=== PATIENT | male | born 1970 | race African-American/Black ===

== ENCOUNTER 2019-09-07 06:07 | Inpatient (IN) ==
[2019-09-07] MEDS ORDERED: ONDANSETRON 4 MG/2 ML VIAL IV STA (06:43)
[2019-09-07] MEDS ORDERED: SODIUM CHLORIDE 0.9% 1,000 ML IV STA ×2 (06:43→06:50)
[2019-09-07 06:52] LABS: Basophils # 0.1 10*3/uL (0.0-0.2); Basophils % 0.4 % (0.0-0.8); Eosinophils % 0.3 % (0.00-10.9); Hematocrit 34.2 VOL% (42.0-52.0); Hemoglobin 12.2 GM/DL (14.0-18.0); Immature Granulocytes % 0.7 %; Lymphocytes # 2.5 10*3/uL (1.4-4.0); Lymphocytes % 18.9 % (21.2-54.2); Mean Corpuscular HGB Conc 35.7 GM/DL (32-36); Mean Corpuscular Volume 89.5 FL (87-102); Mean Platelet Volume 9.9 FL (9.6-12.0); Monocytes % 8.9 % (1.7-12.7); Neutrophils % 70.8 % (38.7-73.9); Platelet Count 297 T/CUMM (130-400); Red Blood Count 3.82 MC/CUMM (3.8-5.5); White Blood Count 13.4 T/CUMM (4-12)
[2019-09-07 07:13] LABS: Bilirubin,Total 1.5 MG/DL (0.2-1.0); Calcium 8.7 MG/DL (8.5-10.1); Osmolality,Calculated 270.4 MOS/KG (273-304); Total Protein 6.5 G/DL (6.4-8.3)
[2019-09-07] MEDS ORDERED: POTASSIUM CHLORIDE 20 MEQ TABLET PO STA (07:57)
[2019-09-07 09:01] LABS: Apearance,Urine CLEAR (Clear); Bacteria,Urine Occasional /HPF (Few); Bilirubin,Urine Negative (Negative); Blood, Urine Small mg/dL (Negative); Glucose,Urine (UA) Negative (Negative); Hyaline Casts,Urine 5 /LPF (0-3); Ketones,Urine Negative (Negative); Mucus,Urine Occasional /LPF (Occasional); Nitrite,Urine Negative (Negative); Protein,Urine Negative; RBC,Urine <1 /HPF (0-4); Squamous Epithelial Cell,Urine Occasional /HPF (0-10); Urine Color Yellow (Yellow); Urine Specific Gravity 1.019 (1.001-1.035); Urine Urobilinogen < 2.0 EU/DL (0.2-1.0); WBC,Urine 3 /HPF (0-6)
[2019-09-07] MEDS ORDERED: ACETAMINOPHEN 325 MG TABLET PO PRN (09:09)
[2019-09-07] MEDS ORDERED: ONDANSETRON 4 MG/2 ML VIAL IV PRN (09:09)
[2019-09-07] MEDS ORDERED: NICOTINE 21 MG/24 HR PATCH TRANSDERM PRN (09:09)
[2019-09-07] MEDS ORDERED: LORazepam 2 MG/1 ML VIAL IV PRN (09:45)
[2019-09-07] MEDS: SODIUM CHLORIDE 0.9% 1,000 ML IV SCH ×3 (11:02→18:43)
[2019-09-07] MEDS: FOLIC ACID 1 MG TABLET PO SCH (20:57)
[2019-09-07] MEDS: PANTOPRAZOLE 40 MG VIAL IV SCH (20:57)
[2019-09-08] MEDS: SODIUM CHLORIDE 0.9% 1,000 ML IV SCH ×4 (04:10→18:23)
[2019-09-08 06:22] LABS: Calcium 7.9 MG/DL (8.5-10.1); Osmolality,Calculated 277.5 MOS/KG (273-304)
[2019-09-08 06:47] LABS: Basophils # 0.1 10*3/uL (0.0-0.2); Basophils % 1.1 % (0.0-0.8); Eosinophils # 0.1 10*3/uL (0.0-0.87); Eosinophils % 1.4 % (0.00-10.9); Hematocrit 26.1 VOL% (42.0-52.0); Immature Granulocytes % 0.7 %; Immature Granulocytes Absolute 0.06 #; Lymphocytes # 3.4 10*3/uL (1.4-4.0); Mean Corpuscular HGB Conc 34.5 GM/DL (32-36); Mean Corpuscular Volume 91.9 FL (87-102); Monocytes % 11.1 % (1.7-12.7); Neutrophils % 45.7 % (38.7-73.9); Platelet Count 224 T/CUMM (130-400); Red Blood Count 2.84 MC/CUMM (3.8-5.5); Red Cell Distribution Width 12.6 % (9.3-17.3); White Blood Count 8.5 T/CUMM (4-12)
[2019-09-08] MEDS: POTASSIUM CHLORIDE 20 MEQ TABLET PO PRN ×3 (08:23→18:24)
[2019-09-08] MEDS ORDERED: ONDANSETRON 4 MG/2 ML VIAL ONE (09:00)
[2019-09-08] MEDS ORDERED: LIDOCAINE 2% 5 ML VIAL ONE (09:00)
[2019-09-08] MEDS ORDERED: PHENYLEPHRINE 1 MG/10 ML SYRINGE IV ONE (09:00)
[2019-09-08] MEDS ORDERED: CYANOCOBALAMIN 100 MCG TABLET PO SCH (09:00)
[2019-09-08] MEDS ORDERED: PROPOFOL 200 MG/20 ML VIAL IV ONE (09:00)
[2019-09-08] MEDS: LACTATED RINGERS 1,000 ML IV SCH (09:18)
[2019-09-08] MEDS: FOLIC ACID 1 MG TABLET PO SCH ×2 (13:27→21:28)
[2019-09-08] MEDS: PANTOPRAZOLE 40 MG VIAL IV SCH ×2 (13:27→21:27)
[2019-09-08] MEDS: MULTIVITAMIN (BEROCCA) TABLET PO SCH (13:27)
[2019-09-09] MEDS: SODIUM CHLORIDE 0.9% 1,000 ML IV SCH ×4 (00:32→21:29)
[2019-09-09 06:22] LABS: Basophils # 0.1 10*3/uL (0.0-0.2); Eosinophils # 0.1 10*3/uL (0.0-0.87); Eosinophils % 2.1 % (0.00-10.9); Hematocrit 21.9 VOL% (42.0-52.0); Immature Granulocytes % 0.9 %; Immature Granulocytes Absolute 0.06 #; Lymphocytes # 2.8 10*3/uL (1.4-4.0); Lymphocytes % 41.8 % (21.2-54.2); Mean Corpuscular HGB Conc 33.3 GM/DL (32-36); Mean Corpuscular Volume 94.8 FL (87-102); Mean Platelet Volume 9.5 FL (9.6-12.0); Monocytes % 11.2 % (1.7-12.7); Platelet Count 212 T/CUMM (130-400); Red Blood Count 2.31 MC/CUMM (3.8-5.5); Red Cell Distribution Width 12.9 % (9.3-17.3); White Blood Count 6.7 T/CUMM (4-12)
[2019-09-09 06:24] LABS: Hemoglobin 7.3 GM/DL (14.0-18.0)
[2019-09-09 06:31] LABS: Calcium 7.9 MG/DL (8.5-10.1)
[2019-09-09] MEDS: PANTOPRAZOLE 40 MG VIAL IV SCH ×2 (08:41→21:30)
[2019-09-09] MEDS: MULTIVITAMIN (BEROCCA) TABLET PO SCH (08:42)
[2019-09-09] MEDS: FOLIC ACID 1 MG TABLET PO SCH ×2 (08:42→21:30)
[2019-09-09] MEDS: LACTATED RINGERS 1,000 ML IV SCH (14:04)
[2019-09-09 14:38] LABS: Hematocrit 23.9 VOL% (42.0-52.0); Hemoglobin 7.8 GM/DL (14.0-18.0)
[2019-09-10] MEDS: SODIUM CHLORIDE 0.9% 1,000 ML IV SCH ×3 (04:14→18:54)
[2019-09-10 06:07] LABS: Basophils # 0.1 10*3/uL (0.0-0.2); Basophils % 1.2 % (0.0-0.8); Eosinophils # 0.2 10*3/uL (0.0-0.87); Eosinophils % 2.8 % (0.00-10.9); Hematocrit 24.3 VOL% (42.0-52.0); Hemoglobin 8.2 GM/DL (14.0-18.0); Immature Granulocytes % 0.5 %; Immature Granulocytes Absolute 0.04 #; Lymphocytes # 2.9 10*3/uL (1.4-4.0); Lymphocytes % 34.6 % (21.2-54.2); Mean Corpuscular HGB Conc 33.7 GM/DL (32-36); Mean Corpuscular Volume 94.2 FL (87-102); Mean Platelet Volume 9.4 FL (9.6-12.0); Monocytes % 10.9 % (1.7-12.7); Platelet Count 274 T/CUMM (130-400); Red Blood Count 2.58 MC/CUMM (3.8-5.5); White Blood Count 8.4 T/CUMM (4-12)
[2019-09-10 06:40] LABS: Calcium 8.1 MG/DL (8.5-10.1); Osmolality,Calculated 276.3 MOS/KG (273-304)
[2019-09-10] MEDS: LACTATED RINGERS 1,000 ML IV SCH (09:13)
[2019-09-10] MEDS: FOLIC ACID 1 MG TABLET PO SCH ×2 (09:14→21:52)
[2019-09-10] MEDS: MULTIVITAMIN (BEROCCA) TABLET PO SCH (09:14)
[2019-09-10] MEDS: PANTOPRAZOLE 40 MG VIAL IV SCH ×2 (09:15→21:52)
[2019-09-11] MEDS: SODIUM CHLORIDE 0.9% 1,000 ML IV SCH ×2 (03:13→11:53)
[2019-09-11] MEDS ORDERED: LIDOCAINE 100 MG/5 ML SYRINGE ONE (10:00)
[2019-09-11] MEDS ORDERED: PROPOFOL 200 MG/20 ML VIAL IV ONE (10:00)
[2019-09-11] MEDS: LACTATED RINGERS 1,000 ML IV SCH (10:01)
[2019-09-11] MEDS ORDERED: SUCRALFATE 1 GM/10 ML UDCUP PO SCH (11:30)
[2019-09-11] MEDS: PANTOPRAZOLE 40 MG VIAL IV SCH (11:51)
[2019-09-11] MEDS: FOLIC ACID 1 MG TABLET PO SCH (11:52)
[2019-09-11] MEDS: MULTIVITAMIN (BEROCCA) TABLET PO SCH (11:52)
[2019-09-11] MEDS ORDERED: LACTATED RINGERS 1,000 ML IV SCH (13:00)
[2019-09-11 15:49] VITALS: BP 114/71
[2019-09-11] MEDS ORDERED: PANTOPRAZOLE 40 MG TABLET PO SCH (21:00)
== END 2019-09-11 17:29 | disposition home or self-care (01) | DRG 381 ==
LOC: EDUNIT# → EDBD → N.ED 06:07 → SUATTDRO 09:09 → N.EDINP 09:09 → N.5E 11:20
PROVIDERS: ADMIT Internal Medicine; ATTEND Emergency Medicine